=== PATIENT | female | born 1985 | race Caucasian/White ===

== ENCOUNTER 2016-12-22 10:35 | Inpatient (IN) | payer OTHER ==
[~2016-12-22] VITALS: Ht 170.2 cm; Wt 93.4 kg
[2016-12-26] MEDS ORDERED: FEOSOL-DPS325 MG PO (14:26)
[2016-12-26] MEDS ORDERED: ZYRTEC10 M3 PO (14:26)
[2016-12-26] MEDS ORDERED: PRENATAL VIT1 TAB PO (14:26)
[2016-12-26] MEDS ORDERED: PERCOCET 5 DPS1 TAB PO (14:27)
[2016-12-26] MEDS ORDERED: FLONASE 0.05% D16 GM NS (14:27)
[2016-12-26] MEDS ORDERED: NIPPLECREAM TP (14:27)
[2016-12-26] MEDS ORDERED: COLACE-DPS100 MG PO (14:27)
[2016-12-26] MEDS ORDERED: MOTRIN-DPS800 MG PO (14:27)
--- NOTE | 2017-01-05 09:19 | HP ---
ADMIT: 12/22/2016 RM/LOC: 219 [facility] MR#: [id number] [id number] [place], [place] [address] BEVERLY HIGH Jonatan [address] [place] [id number] Pre-OP History and Physical SEX: F AGE: 31 : 1985 DATE OF SERVICE: REASON FOR ADMISSION: Contractions and loss of fluid. HISTORY OF PRESENT ILLNESS: The patient is a 31-year-old 1, para 0, who presented to Labor and Delivery at 40-0/7th weeks' gestation by last menstrual period with estimated date of confinement of 12/22/2016. The patient's had been complicated by history of asthma, which had been stable off medication throughout the and otherwise been uncomplicated. At time of her routine visit in the office, on 12/22/2016, the patient was noted to be having regular contractions and exam was positive for rupture of membranes. The patient was therefore admitted to Labor and Delivery. She denied any vaginal bleeding. LABORATORY DATA: Blood type A positive. Antibody screen negative. RPR nonreactive. Rubella immune. Group B Strep negative. HIV negative. Gonorrhea and chlamydia negative. Hep B surface antigen negative. PAST MEDICAL HISTORY: Asthma. PAST SURGICAL HISTORY: None. CURRENT MEDICATIONS: 1. Ferrous sulfate 325 mg daily. 2. Flonase one puff daily. 3. vitamin daily. 4. Zyrtec 10 mg daily. ALLERGIES: AUGMENTIN CAUSES HIVES. SOCIAL HISTORY: The patient is . She denies any alcohol, tobacco, or drug use. FAMILY HISTORY: Father and sister with asthma. Mother and sister with depression. Father with hypertension. PHYSICAL EXAMINATION: VITAL SIGNS: On admission, blood pressure 123/86, pulse 91, temperature 99, respirations 16. GENERAL: The patient is alert and oriented, in no acute distress. HEART: Regular rate and rhythm without murmurs, gallops, or rubs. LUNGS: Clear to auscultation bilaterally. ABDOMEN: Soft, nontender, gravid. EXTREMITIES: No edema. No calf tenderness. ADMIT: 12/22/2016 RM/LOC: 219 [facility] MR#: [id number] [address] [address] B[facility] HIGH [address] [place] [address] Pre-OP History and Physical SEX: F AGE: 31 : 1985 heart tones are in the 150s with minimal variability and on admission was noted to have late decelerations after each contraction. Contractions every 2-5 minutes. Cervix 1 cm dilated, 90% effaced, and -2 station. ASSESSMENT AND PLAN: 1. A 31-year-old 1, para 0, at 40-0/7th weeks' gestation. 2. Active labor. Plan to admit in labor and anticipate spontaneous vaginal delivery. 3. Category II heart tones. We will begin IV fluids and we will continue to monitor and if no improvement in heart tones, remote from delivery, would need to consider primary section. 4. Maternal asthma, stable off medication. Tabitha Calle MD/ celeste JOB #: [id number] CC: Tabitha Calle, Attending Physician Joe Andres, Family Physician
--- NOTE | 2017-01-05 09:19 | OR ---
ADMIT: 12/22/2016 RM/LOC: 219 [facility] MR#: [id number] [address] [address] BEVER[place] HIGH Jonatan [address] [place] [id number] Operative/Delivery Room Report SEX: F AGE: 31 : 1985 SURGERY DATE: 12/22/2016 SURGEON: Tabitha Calle MD NAME OF PROCEDURE: Primary low transverse section. POWDER WORKER TNT: Edmundo Sena MD PREOPERATIVE DIAGNOSES: 1. Intrauterine at 40-0/7th weeks' gestation. 2. Nonreassuring heart tones. 3. Thick meconium fluid. POSTOPERATIVE DIAGNOSES: 1. Intrauterine at 40-0/7th weeks' gestation. 2. Nonreassuring heart tones. 3. Thick meconium fluid. FINDINGS: 1. Liveborn male infant, scores of 2 at 1 minute, 7 at 5 minutes, 8 at 10 minutes. Weight 7 pounds 0 ounces. 2. Normal appearing uterus, tubes, and ovaries bilaterally. 3. Thick meconium. ESTIMATED BLOOD LOSS: 900 mL. ANESTHESIA: Spinal. COMPLICATIONS: None. INDICATIONS FOR PROCEDURE: The patient is a 31-year-old female, who had presented to the office with complaints of contractions and was noted to have loss of fluid. The patient was noted to be ruptured at the time of visit in the clinic. The patient was then sent to Labor and Delivery. Upon admission to Labor and Delivery, the patient was noted to have recurrent late decelerations. Fluid was started and the patient was given oxygen supplementation; however, the heart tones remained nonreassuring with recurrent late decelerations and so, decision was made to proceed with primary section due to this. The risks, benefits, and alternatives of surgery including, but not limited to the risk of bleeding, possibly requiring blood transfusion, risk of infection, risk of injury to bowel or bladder were discussed the patient and she agreed to proceed. DESCRIPTION OF PROCEDURE: The patient was taken to the operating room, where spinal anesthesia was obtained without difficulty. The patient was placed in dorsal supine position in leftward tilt and prepped and draped in the usual sterile fashion. A French catheter had been previously placed. A Pfannenstiel skin incision was made with a scalpel and was carried through to the underlying layer of fascia. The fascia was nicked in midline and this ADMIT: 12/22/2016 RM/LOC: 219 [facility] MR#: [id number] [address] [address] BEVERLY HIGH [address] [place] [address] Operative/Delivery Room Report SEX: F AGE: 31 : 1985 incision was extended bilaterally using Rayumndo scissors. The superior aspect of the fascial incision was grasped with Adrianna clamps, elevated, and the underlying rectus muscles were dissected off with Raymundo scissors. In a similar fashion, the inferior aspect of the fascial incision was grasped with Adrianna clamps, elevated, and the underlying rectus muscles were dissected off with Raymundo scissors. Peritoneum was entered bluntly and this incision was extended bluntly. The bladder blade was then placed. The vesicouterine peritoneum was identified and entered sharply with Metzenbaum scissors. The bladder flap was created digitally. Bladder blade was then replaced. The lower uterine segment was incised with scalpel. Again, thick meconium fluid was noted. The 's vertex was grasped and delivered through the uterine incision. The remainder of the infant delivered without difficulty as well. The infant was dried. The cord was clamped and cut, and the was handed off to the NICU where nursing personnel and Dr. Janneth Borja were in attendance due to nonreassuring heart tones and thick meconium. The placenta delivered intact. Twenty units of Pitocin were placed in IV bag to firm the uterus. The uterus was exteriorized and cleared of all clots and debris. The uterine incision was closed in a running locked fashion using 0 Vicryl. Two additional [id number] stitches were used in left corner for hemostasis of the uterine incision. The uterus was then replaced into the abdominal cavity. The gutters were checked and cleared of all clots and debris. The uterine incision was again examined and was noted to be hemostatic. The muscles and fascia were examined and made hemostatic with electrocautery. The fascial incision was closed in a running fashion using 0 Vicryl. The subcutaneous layer was made hemostatic with electrocautery and this layer was brought together using interrupted 2-0 plain gut. The skin incision was closed with subcuticular stapler. The patient tolerated the procedure well. All sponge and needle counts were correct. The patient and her went to the room in stable condition. Tabitha Calle MD/ celeste JOB #: [id number] CC: Tabitha Calle, Attending Physician Joe Andres, Family Physician
--- NOTE | 2017-02-19 07:21 | DS ---
ADMIT: 12/22/2016 RM/LOC: 219 [facility] MR#: [id number] [address] [address] B[facility] H[facility] Jonatan [address] [place] [id number] General Discharge Summary SEX: F AGE: 31 : 1985 ADMISSION DATE: 12/22/2016 DISCHARGE DATE: 12/25/2016 ADMISSION DIAGNOSES: 1. Intrauterine at 40-0/7th weeks' gestation. 2. Active labor. 3. Asthma. DISCHARGE DIAGNOSES: 1. Intrauterine at 40-0/7th weeks' gestation. 2. Active labor. 3. Asthma. 4. Nonreassuring heart tones. PROCEDURES PERFORMED: Primary low transverse section performed on 12/22/2016, for nonreassuring heart tones with delivery of liveborn male , scores 2 at 1 minute, 7 at 5 minutes, 8 at 10 minutes. Weight 7 pounds 6 ounces. INDICATIONS FOR HOSPITALIZATION: The patient is a 31-year-old female, who presented to Labor and Delivery after being noted in the office to be bud regularly and to have ruptured membranes, presented to Birthing Center. On admission to the Birthing Center, the patient was noted to have recurrent late decelerations after each contraction. The patient's cervix was 1 cm dilated at that point. Intrauterine resuscitation did not improve heart tones, so decision was made to proceed with primary section. HOSPITAL COURSE: The patient underwent the above-named procedure on 12/22/2016. Postoperatively, the patient did well. Postoperative day #1, the patient's pain was controlled. She was without difficulty and postoperative hemoglobin was noted be 9.6, so patient was started on iron ADMIT: 12/22/2016 RM/LOC: 219 [facility] MR#: [id number] [id number] [facility] [address] [place], [place] [address] [facility] [address] [place] [address] General Discharge Summary SEX: F AGE: 31 : 1985 sulfate daily. By postoperative day #2, the patient's pain was controlled and she was without difficulty. By postoperative day #3, the patient was deemed stable for discharge. DISCHARGE INSTRUCTIONS: The patient to be discharged to home. She is to continue Motrin and Percocet as needed for pain control. She is to continue Colace and iron tablet daily. She is to follow up in the clinic in 2 weeks for incision check and in 6 weeks for a check. FINAL DISPOSITION: The patient is to home. CONDITION ON DISCHARGE: Stable. Tabitha Calle MD/ celeste JOB #: [id number] CC: Tabitha Calle MD, Attending Physician Joe Andres MD, Family Physician
== END 2016-12-25 13:15 | disposition home or self-care (01) | DRG 766 ==
LOC: BC 10:35 → 2LDRP 10:35
PROVIDERS: ADMIT Obstetrics & Gynecology
PROC: 10D00Z1 Extraction of Products of Conception, Low, Open Approach (ICD-10-PCS; principal; 2016-12-22)
DX: O76 Abnormality in fetal heart rate and rhythm complicating labor and delivery (principal); D64.9 Anemia, unspecified; O99.02 Anemia complicating childbirth; O77.0 Labor and delivery complicated by meconium in amniotic fluid; O99.52 Diseases of the respiratory system complicating childbirth; J45.909 Unspecified asthma, uncomplicated; Z3A.40 40 weeks gestation of pregnancy; Z37.0 Single live birth